=== PATIENT | female | born 1995 | race Caucasian/White ===

== ENCOUNTER 2019-01-08 08:43 | Emergency (ER) | payer OTHER ==
[2019-01-08] MEDS ORDERED: Ondansetron ODT 4 MG TAB ONE (09:03)
--- NOTE | 2019-01-08 09:41 | CT ---
CT OF THE BRAIN WITHOUT CONTRAST: Date: 01/08/19 COMPARISON: None. HISTORY: Blunt trauma with direct blow to the head after hitting head on concrete. TECHNIQUE: Multiple contiguous axial images were obtained in a CT of the brain without contrast. FINDINGS: The brain is normal in morphology and attenuation without focal lesions or confluent areas of infarct ion. There is no evidence of hydrocephalus, intracranial hemorrhage, or extra-axial fluid collection. The calvarium and overlying soft tissues are unremarkable. The visualized paranasal sinuses and masto id air cells are well aerated. IMPRESSION: No evidence of acute intracranial abnormality. POS: [facility]
[2019-01-08] MEDS ORDERED: Acetaminophen 500 MG TAB ONE (09:53)
== END 2019-01-08 09:57 | disposition home or self-care (01) ==
LOC: SCSER 08:43
DX: S00.03XA Contusion of scalp, initial encounter (principal); X58.XXXA Exposure to other specified factors, initial encounter
CPT/HCPCS: 70450; Q0162